=== PATIENT | female | born 1995 | race American Indian/Alaskan Native ===

== ENCOUNTER 2016-05-24 19:31 | Outpatient (CLI) | payer MEDICAID ==
[2016-05-24] MEDS ORDERED: LACTATED RINGERS 1,000 ML IV ONE (20:09)
[2016-05-24 20:11] VITALS: BP 121/69
[2016-05-24 20:33] LABS: Bilirubin,Urine NEG (Negative); Blood,Urine NEG (Negative); Ketones,Urine NEG (Negative); Leukocyte Esterase,Urine NEG (Negative); Mucus,Urine FEW /HPF; Nitrite,Urine NEG (Negative); Protein,Urine <15 mg/dL mg/dL (Negative); Urobilinogen,Urine < 2.0 mg/dL (<2.0)
== END 2016-05-24 21:30 | disposition home or self-care (01) ==
LOC: TRG 19:31
PROVIDERS: ATTEND Obstetrics & Gynecology
DX: O47.02 False labor before 37 completed weeks of gestation, second trimester (principal); Z3A.23 23 weeks gestation of pregnancy
CPT/HCPCS: 81001

== ENCOUNTER 2016-06-21 12:19 | Inpatient (IN) | payer MEDICAID ==
[2016-06-21] MEDS ORDERED: TYLENOL PO PRN (13:44)
[2016-06-21] MEDS ORDERED: COLACE PO PRN (13:44)
[2016-06-21] MEDS ORDERED: AMBIEN PO PRN (13:44)
[2016-06-21] MEDS ORDERED: APRESOLINE IV PRN ×2 (13:53→14:54)
--- NOTE | 2016-06-21 14:06 | History and Physical Report ---
History of Present Illness Date of examination: 06/21/16 Date of admission: 06/21/16 12:24 Chief complaint: Hypertensive in office History of present illness: 21yo @ 27.5 weeks. Seen in office today with increased BP 169/116 and 164/118, headache, dizziness, visual changes, + hands, feet and facial swelling. Denies RUQ pain. Pt has a history of PIH in previous in 2016, delivered at 37 weeks. 24 hour urine protein 244 on 03/08/2016. Past History Past Medical History: no pertinent history Past Surgical History: D&C Family/Genetic History: other (asthma) Social history: denies: smoking, alcohol abuse, prescription drug abuse, IV drug use - Obstetrical History Expected Date of Delivery: 09/15/16 Actual Gestation: 27 Week(s) 5 Day(s) : 4 Para: 1 Hx # Term Pregnancies: 1 (PIH) Number of Pregnancies: 1 (20 weeks, prolapsed membranes) Spontaneous Abortions: 0 Induced : 1 (Molar) Number of Living Children: 1 Medications and Allergies Allergies Allergy/AdvReac Type Severity Reaction Status Date / Time No Known Allergies Allergy Unverified 12/23/14 11:01 Home Medications Medication Instructions Recorded Confirmed Last Taken Type Vit W-Ca,Fe,FA(<1 mg) 1 each PO QDAY #30 tablet 01/16/16 Unknown Rx [ Vitamins] Active Meds: Active Medications Acetaminophen (Tylenol) 650 mg PO Q4H PRN PRN Reason: Pain MILD(1-3)/Fever >100.5/PERRIN Betamethasone Acet/Betameth SodPhos (Celestone Soluspan) 12 mg IM Q24H TORIE Stop: 06/22/16 14:01 Docusate Sodium (Colace) 100 mg PO Q12H PRN PRN Reason: Constipation Hydralazine HCl (Apresoline) 5 mg IV Q30MIN PRN PRN Reason: SBP>/= 160 OR DBP>/= 110 Multivitamins/Iron/Calcium ( Vitamin) 1 each PO QDAY TORIE Zolpidem Tartrate (Ambien) 10 mg PO ONCE PRN PRN Reason: Sleep Review of Systems All systems: negative Eyes: blurred vision Neurological: headaches - Vital Signs Vital signs: Vital Signs Pulse BP 68 182/113 06/21/16 13:31 06/21/16 13:31 Temp Pulse Resp BP Pulse Ox 71 179/106 06/21/16 13:34 06/21/16 13:34 - Physical Exam Cardiovascular: Regular rate Lungs: Positive: Normal air movement Vagina: Positive: normal moisture Extremities: Positive: normal Deep Tendon Reflex Grade: Normal +2 - Obstetrical FHR: category 1 FHR comments: FHT 145 Uterine Contraction Monitor Mode: External Uterine Contraction Pattern: Irregular Uterine Tone Measurement Phase: Resting Uterine Contraction Intensity: Mild Results All other labs normal. Assessment and Plan A: IUP 27.5 weeks with hypertension affecting Category 1 FHT Uncomfortable with headache P: Admit to [facility] PIH labs, 24 hour urine Hydralazine for SBP>/=160 OR DBP>/= 110 APA consult requested Care of patient turned over to Dr. Isaac.
[2016-06-21 14:16] LABS: Bacteria,Urine 1+ /HPF (Negative); Bilirubin,Urine NEG (Negative); Blood,Urine NEG (Negative); Ketones,Urine NEG (Negative); Leukocyte Esterase,Urine NEG (Negative); Mucus,Urine FEW /HPF; Nitrite,Urine NEG (Negative); Urobilinogen,Urine < 2.0 mg/dL (<2.0)
[2016-06-21 14:20] LABS: Basophils % (Auto) 0.5 % (0.0-1.8); Eosinophils % (Auto) 0.3 % (0.0-4.3); Hematocrit 36.1 % (30.3-42.9); Hemoglobin 12.1 gm/dl (10.1-14.3); Mean Corpuscular HGB Conc 34 % (30-34); Mean Corpuscular Hemoglobin 30 pg (28-32); Mean Corpuscular Volume 90 fl (79-97); Platelet Count 214 K/mm3 (140-440); Red Blood Count 3.99 M/mm3 (3.65-5.03); Red Cell Distribution Width 13.6 % (13.2-15.2); White Blood Count 9.4 K/mm3 (4.5-11.0)
[2016-06-21 14:21] LABS: Protein,Urine >500 mg/dL (Negative)
[2016-06-21 14:35] LABS: Alanine Aminotransferase 7 units/L (7-56); Lactate Dehydrogenase 249 units/L (91-180); Uric Acid 6.2 mg/dL (3.5-7.6)
[2016-06-21] MEDS ORDERED: MAGNESIUM SULFATE 4GM/100ML 4 GM/100 ML BAG IV ONE (14:46)
[2016-06-21] MEDS: CELESTONE SOLUSPAN IM SCH (14:50)
[2016-06-21] MEDS ORDERED: NORMODYNE IV ONE (14:58)
[2016-06-21] MEDS: MAGNESIUM SULFATE 40GM/1000ML 40 GM/1,000 ML BAG IV SCH (15:25)
[2016-06-21] MEDS: ZOFRAN IV PRN (15:45)
[2016-06-21] MEDS: LACTATED RINGERS 1,000 ML IV SCH (15:47)
--- NOTE | 2016-06-21 16:54 | Consultation ---
History of Present Illness Consult date: 06/21/16 Requesting physician: SHAKIR BEEBE History of present illness: History of present illness: 21yo at 27 5/7 weeks. Sent in from OB's office today with increased BP 169/116 and 164/118, headache , dizziness, visual changes, pos hands, feet and facial swelling. Reported BP started increasing about 2 to 3 weeks ago Denies H/O CHTN BP's in house up to 183/114 IV Hydralazine given and BP's now at 152/93 Currently on Mg Received First Dose of Steroids ========= Spot UA had > 500 Protein - 24 Hour Urine in progress ========= Denies RUQ pain. Pt has a history of PIH in previous in 2015, delivered at 37 weeks. 24 hour urine protein 244 on 03/08/2016. Exam" Abd NT No RUQ Pain Gravid Ext - 2-3 plus edema, DTR 1- 2/4 and Neg Nancy's but now on Mg US Pending Past History Denies STD's Past Medical History: no pertinent history Past Surgical History: D&C Family/Genetic History: other (asthma) Social history: denies: smoking, alcohol abuse, prescription drug abuse, IV drug use - Obstetrical History Expected Date of Delivery: 09/15/16 Actual Gestation: 27 Week(s) 5 Day(s) : 4 Para: 1 Hx # Term Pregnancies: 1 (PIH) 2014 Vag Del at 37 weeks - H/O PIH with this preg Number of Pregnancies: 1 (20 weeks, prolapsed membranes) Spontaneous Abortions: 0 Induced : 1 (Molar) Number of Living Children: 1 Past History Past Medical History: no pertinent history Past Surgical History: D&C Family/Genetic History: other (asthma) - Obstetrical History : 4 Medications and Allergies Allergies Allergy/AdvReac Type Severity Reaction Status Date / Time No Known Allergies Allergy Unverified 12/23/14 11:01 Home Medications Medication Instructions Recorded Confirmed Last Taken Type Vit W-Ca,Fe,FA(<1 mg) 1 each PO QDAY #30 tablet 01/16/16 Unknown Rx [ Vitamins] Active Meds: Active Medications Acetaminophen (Tylenol) 650 mg PO Q4H PRN PRN Reason: Pain MILD(1-3)/Fever >100.5/PERRIN Betamethasone Acet/Betameth SodPhos (Celestone Soluspan) 12 mg IM Q24H TORIE Stop: 06/22/16 14:01 Last Admin: 06/21/16 14:50 Dose: 12 mg Docusate Sodium (Colace) 100 mg PO Q12H PRN PRN Reason: Constipation Hydralazine HCl (Apresoline) 10 mg IV Q30MIN PRN PRN Reason: SBP>/= 160 OR DBP>/= 110 Last Admin: 06/21/16 13:50 Dose: 10 mg Magnesium Sulfate (Magnesium Sulfate 40gm/1000ml) 40 gm in 1,000 mls @ 50 mls/ hr IV DIRECT TORIE PRN Reason: 2 GM/HR Last Admin: 06/21/16 15:25 Dose: 2 gm/hr, 50 mls/hr Lactated Ringer's (Lactated Ringers) 1,000 mls @ 125 mls/hr IV DIRECT TORIE Last Admin: 06/21/16 15:47 Dose: 125 mls/hr Multivitamins/Iron/Calcium ( Vitamin) 1 each PO QDAY [facility] Ondansetron HCl (Zofran) 4 mg IV Q4H PRN PRN Reason: Nausea And Vomiting Last Admin: 06/21/16 15:45 Dose: 4 mg Zolpidem Tartrate (Ambien) 10 mg PO ONCE PRN PRN Reason: Sleep - Vital Signs Vital signs: Vital Signs Pulse BP 68 182/113 06/21/16 13:31 06/21/16 13:31 Temp Pulse Resp BP Pulse Ox 104 H 147/99 96 06/21/16 16:43 06/21/16 16:43 06/21/16 16:43 Results Result Diagrams: 06/21/16 13:35 06/21/16 13:35 Abnormal lab results 06/21/16 06/21/16 06/21/16 Range/Units 13:35 13:35 13:35 [place] % (Auto) 8.5 H (0.0-7.3) % Seg Neutrophils % 76.5 H (40.0-70.0) % Creatinine 0.6 L (0.7-1.2) mg/dL Lactate Dehydrogenase 249 H (91-180) units/L Urine WBC (Auto) 8.0 H (0.0-6.0) /HPF All other labs normal. Assessment and Plan Impression: 1. 27 2/7 weeks IUP 2. Preeclampsia with Severe Features 3. Prior H/O PIH 4. H/O Molar Preg in Past Recommendations: 1. Mg Per Protocal 2. Steroids Per Protocol 3. NICU Consult 4. All PIH Labs and 24 Hour Urine Prot 5. EFM 6. US for EFW, BPP, Cord Arterial Dopplers 7. IV Hydralazine for BP's Sys > 160 or Diastolic > 110 8. Seq Leg compressors 9. Repeat PIH labs tomorrow in AM 10. Delivery Recommended 24 Hours after steroid complete if remains stable due to Preeclasmpsia with Severe Features 11. Discussed in detail with patient and she understands serious nature of her condition and risk of Preeclampsia with Severe Features is now greater than risk of prematurity.
--- NOTE | 2016-06-22 07:39 | Ultrasound Report ---
ULTRASOUND OB VELOCIMETRY UMBILICAL ARTERY History: Hypertension during . Findings: Transabdominal ultrasound with spectral Doppler interrogation was performed on 3 segments of the umbilical cord. heart rate measures 159 beats per minute. Continuous spectral waveforms are demonstrated throughout. No evidence for loss of end-diastolic flow. The S/D ratio average measures 4.41. The resistive index average measures 0.77.
--- NOTE | 2016-06-22 07:39 | Ultrasound Report ---
ULTRASOUND BIOPHYSICAL PROFILE: History: Hypertension during , well being Technique: Transabdominal ultrasound with Doppler interrogation. 2 - breathing movements 2 - movements 2 - posture and tone 2 - Qualitative amniotic fluid volume 8 - TOTAL SCORE OF POSSIBLE 8 Heart Rate (bpm) 155
--- NOTE | 2016-06-22 07:56 | Ultrasound Report ---
ULTRASOUND OB FOLLOWUP History: Hypertension during . Technique: Transabdominal ultrasound with Doppler interrogation. Gestation: Single Position: Cephalic Amniotic Fluid: Normal MELINA = 9.7 cm Placenta: Anterior Placental Grade: 1 Heart Rate: 159 BPM Cervical length: 3.2 cm (Normal > 3 cm) BPD: 7.1 cm = 28 w 4 d HC: 26.1 cm = 28 w 2 d AC: 22.4 cm = 26 w 6 d FL: 5.2 cm = 27 w 5 d HC/AC Ratio: 1.16 Cephalic Index: 75.9 Estimated Weight: 1068 grams LMP: 12/10/15 Clinical age = 27 w 5 d EDC: 09/15/16 US Gest. Age = 27 w 6 d EDC: 09/14/16
--- NOTE | 2016-06-22 08:11 | Admit Criteria Form ---
Admission Criteria Documentation: HYPERTENSIVE DISORDERS OF Clinical Indications for Admission to Inpatient Care (Place 'X' for any and all applicable criteria): Admission is indicated for ANY ONE of the following (1)(2)(3)(4)(5): [ ]I. Eclampsia[A][B] [X]II. Preeclampsia with severe features (ie, severe preeclampsia) indicated by ANY ONE of the following[B][C]: [X]a) SBP greater than or equal to 160 mm Hg or DBP greater than or equal to 110 mm Hg on 2 occasions at least 4 hours apart while the patient is at bed rest (unless antihypertensive therapy is initiated before this time) [ ]b) Platelet count less than 100,000/mm3 (100 x109/L) [ ]c) Impaired liver function as indicated by ANY ONE of the following: [ ]i. Elevation of liver enzymes (eg, SGOT, SGPT) to twice normal concentration [ ]ii. Severe persistent right upper quadrant or epigastric pain unresponsive to medication and not accounted for by alternative diagnosis [ ]d) Progressive renal insufficiency indicated by ANY ONE of the following: [ ]i. Serum creatinine concentration greater than 1.1 mg/dL (97 micromoles/L) [ ]ii. Doubling (from baseline) of serum creatinine concentration in the absence of other renal disease [ ]e) Pulmonary edema [ ]f) Cerebral or visual symptoms (eg, headache, Altered mental status , changes in vision) [ ]III. Delivery planned due to nonsevere preeclampsia as indicated by ALL of the following: [ ]a) Nonsevere preeclampsia present as indicated by ALL of the following: [ ]i. Woman at 20 or more weeks' gestation [ ]ii. New-onset SBP greater than or equal to 140 mm Hg but less than 160 mm Hg or DBP greater than or equal to 90 mm Hg but less than 110 mm Hg on 2 occasions at least 4 hours apart [ ]iii. Proteinuria present as indicated by ANY ONE of the following: [ ]A. Urinary protein excretion greater than or equal to 300 mg per 24-hour collection (or this amount extrapolated from a shorter timed collection) [ ]B. Protein/creatinine ratio greater than or equal to 0.3 (measured in mg/dL) [ ]b) Delivery indicated due to ANY ONE of the following: [ ]i. Gestational age of 37 0/7 weeks or more [ ]ii. Gestational age of 34 0/7 weeks to 36 6/7 weeks and ANY ONE of the following: [ ]A. Progressive labor or rupture of membranes [ ]B. Abnormal biophysical profile [ ]C. Suspected abruptio placentae [ ]D. Ultrasound estimate of weight less than 5th percentile [ ]E. Other indication for delivery [ ]IV. Delivery planned due to gestational hypertension[D] because of ANY ONE of the following: [ ]a) Delivery indicated because gestational age of 37 0/7 weeks or more has been reached [ ]b) Gestational age of 34 0/7 weeks to 36 6/7 weeks for which delivery is indicated because of ANY ONE of the following: [ ]i. Progressive labor or rupture of membranes [ ]ii. Abnormal biophysical profile [ ]iii. Suspected abruptio placentae [ ]iv. Ultrasound estimate of weight less than 5th percentile [ ]v. Other indication for delivery [ ]V. Hypertension of any category[E] during with acute end organ damage as indicated by ANY ONE of the following: [ ]a) Hypertensive encephalopathy (eg, Altered mental status that is severe or persistent )(11) [ ]b) Cerebral infarction [ ]c) Intracranial hemorrhage [ ]d) Myocardial ischemia or infarction [ ]e) Pulmonary edema [ ]f) Aortic dissection [ ]g) Seizure [ ]h) Papilledema [ ]i) Microangiopathic hemolytic anemia [ ]j) Visual loss [ ]k) Acute renal failure [ ]) Hypertension during with evidence of compromise as indicated by ANY ONE of the following: [ ]a) Abnormal heart tones [ ]b) Abnormal stress test [ ]c) Abnormal biophysical profile [X]VII) patient requires inpatient control of blood pressure indicated by (see Hypertensive Disorders of : Observation Care [facility] guideline as appropriate) ALL of the following: [X ]a) SBP is greater than or equal to 160 mm Hg or DBP is greater than or equal to 105 mm Hg [X ]b) Blood pressure cannot be reduced below these levels with outpatient or observation care treatment (eg, oral medications not effective) Extended stay beyond goal length of stay may be needed for : [ ]a) Eclampsia [ ]b) Ongoing compromise [ ]c) Complications of hypertensive disorders of [ ]d) Active comorbidities (eg, heart failure, poorly controlled diabetes, renal insufficiency) [ ]e) Persistent hypertension [ ]f) Delivery planned The original [facility] content created by [facility] has been revised. The portions of the content which have been revised are identified through the use of italic text or in bold, and [facility] (formerly [facility])[3] has neither reviewed nor approved the modified material. All other unmodified content is copyright [facility]. Please see references footnoted in the original [facility] [facility] edition 2016. Admission Criteria Met: Yes
[2016-06-22 08:29] LABS: Hematocrit 37.6 % (30.3-42.9); Hemoglobin 12.6 gm/dl (10.1-14.3); Mean Corpuscular HGB Conc 34 % (30-34); Mean Corpuscular Hemoglobin 30 pg (28-32); Mean Corpuscular Volume 90 fl (79-97); Platelet Count 231 K/mm3 (140-440); Red Blood Count 4.17 M/mm3 (3.65-5.03); Red Cell Distribution Width 14.2 % (13.2-15.2)
[2016-06-22 08:34] LABS: White Blood Count 22.6 K/mm3 (4.5-11.0)
[2016-06-22 09:01] LABS: Magnesium 6.5 mg/dL (1.7-2.3)
--- NOTE | 2016-06-22 09:45 | Progress Note ---
Assessment and Plan - Patient Problems (1) Pre-eclampsia Onset Date: 06/22/16 Current Visit: Yes Status: Acute Qualifiers: Trimester: third trimester Qualified Code(s): O14.93 - Unspecified pre- eclampsia, third trimester (2) with 27 completed weeks gestation Onset Date: 06/22/16 Current Visit: Yes Status: Acute Plan to address problem: A: IUP @ 27 6/7 weeks Preeclampsia - stable on magnesium sulfate Abnormal cord doppler studies P: Appreciate [facility] consultation Continue present management To receive 2nd dose of Betamethasone today with possible delivery today 24 hr urine to be completed today Subjective - Subjective Date of service: 06/22/16 Principal diagnosis: IUP @ 27 6/7 weeks; Preeclampsia Interval history: Pt is sleeping, but had no complaints last night. Presently on magnesium sulfate 2gm/hr, and received 1st dose of Betamethasone. Patient reports: no new complaints Objective - Vital Signs Vital Signs: Vital Signs - 12hr 06/21/16 06/21/16 06/21/16 21:54 22:09 22:24 Temperature Pulse Rate 96 H 100 H 101 H Pulse Rate [ From Monitor] Respiratory Rate Blood Pressure 146/94 141/88 147/88 Blood Pressure [Left Arm] O2 Sat by Pulse Oximetry 06/21/16 06/21/16 06/21/16 22:39 22:54 23:09 Temperature Pulse Rate 96 H 94 H 100 H Pulse Rate [ From Monitor] Respiratory Rate Blood Pressure 145/89 143/89 144/89 Blood Pressure [Left Arm] O2 Sat by Pulse Oximetry 06/21/16 06/21/16 06/21/16 23:24 23:39 23:54 Temperature Pulse Rate 102 H 105 H 96 H Pulse Rate [ From Monitor] Respiratory Rate Blood Pressure 148/95 157/100 132/77 Blood Pressure [Left Arm] O2 Sat by Pulse Oximetry 06/21/16 06/22/16 06/22/16 23:55 00:09 00:24 Temperature 98.1 F Pulse Rate 96 H 99 H Pulse Rate [ 96 H From Monitor] Respiratory 20 Rate Blood Pressure 136/81 131/78 Blood Pressure 132/77 [Left Arm] O2 Sat by Pulse Oximetry 06/22/16 06/22/16 06/22/16 00:39 00:54 01:09 Temperature Pulse Rate 101 H 103 H 110 H Pulse Rate [ From Monitor] Respiratory Rate Blood Pressure 134/79 126/75 151/93 Blood Pressure [Left Arm] O2 Sat by Pulse Oximetry 06/22/16 06/22/16 06/22/16 01:25 01:39 01:54 Temperature Pulse Rate 112 H 105 H 95 H Pulse Rate [ From Monitor] Respiratory Rate Blood Pressure 146/92 152/94 141/90 Blood Pressure [Left Arm] O2 Sat by Pulse Oximetry 06/22/16 06/22/16 06/22/16 02:09 02:39 02:54 Temperature Pulse Rate 102 H 100 H 105 H Pulse Rate [ From Monitor] Respiratory Rate Blood Pressure 133/84 141/88 143/93 Blood Pressure [Left Arm] O2 Sat by Pulse Oximetry 06/22/16 06/22/16 06/22/16 03:09 03:24 03:39 Temperature Pulse Rate 97 H 103 H 108 H Pulse Rate [ From Monitor] Respiratory Rate Blood Pressure 148/94 134/71 149/89 Blood Pressure [Left Arm] O2 Sat by Pulse Oximetry 06/22/16 06/22/16 06/22/16 03:54 04:09 04:10 Temperature Pulse Rate 104 H 107 H Pulse Rate [ 107 H From Monitor] Respiratory 20 Rate Blood Pressure 149/88 149/88 Blood Pressure 149/88 [Left Arm] O2 Sat by Pulse Oximetry 06/22/16 06/22/16 06/22/16 04:24 04:39 04:55 Temperature Pulse Rate 111 H 104 H 109 H Pulse Rate [ From Monitor] Respiratory Rate Blood Pressure 152/92 125/73 140/94 Blood Pressure [Left Arm] O2 Sat by Pulse Oximetry 06/22/16 06/22/16 06/22/16 05:09 05:24 05:39 Temperature Pulse Rate 113 H 112 H 110 H Pulse Rate [ From Monitor] Respiratory Rate Blood Pressure 146/93 132/76 142/84 Blood Pressure [Left Arm] O2 Sat by Pulse Oximetry 06/22/16 06/22/16 06/22/16 05:55 06:09 06:12 Temperature Pulse Rate 109 H 106 H 109 H Pulse Rate [ From Monitor] Respiratory Rate Blood Pressure 139/96 135/82 Blood Pressure [Left Arm] O2 Sat by Pulse 96 Oximetry 06/22/16 06/22/16 06/22/16 06:17 06:22 06:24 Temperature Pulse Rate 118 H 98 H 93 H Pulse Rate [ From Monitor] Respiratory Rate Blood Pressure 129/79 Blood Pressure [Left Arm] O2 Sat by Pulse 94 93 Oximetry 06/22/16 06/22/16 06/22/16 06:27 06:32 06:37 Temperature Pulse Rate 96 H 94 H 98 H Pulse Rate [ From Monitor] Respiratory Rate Blood Pressure Blood Pressure [Left Arm] O2 Sat by Pulse 94 94 94 Oximetry 06/22/16 06/22/16 06/22/16 06:39 06:42 06:47 Temperature Pulse Rate 93 H 101 H 98 H Pulse Rate [ From Monitor] Respiratory Rate Blood Pressure 132/77 Blood Pressure [Left Arm] O2 Sat by Pulse 93 94 Oximetry 06/22/16 06/22/16 06/22/16 06:52 06:54 06:57 Temperature Pulse Rate 99 H 98 H 99 H Pulse Rate [ From Monitor] Respiratory Rate Blood Pressure 140/78 Blood Pressure [Left Arm] O2 Sat by Pulse 93 94 Oximetry 06/22/16 06/22/16 06/22/16 07:02 07:07 07:09 Temperature Pulse Rate 102 H 100 H 100 H Pulse Rate [ From Monitor] Respiratory Rate Blood Pressure 135/75 Blood Pressure [Left Arm] O2 Sat by Pulse 94 94 Oximetry 06/22/16 06/22/16 06/22/16 07:12 07:17 07:22 Temperature Pulse Rate 100 H 100 H 110 H Pulse Rate [ From Monitor] Respiratory Rate Blood Pressure Blood Pressure [Left Arm] O2 Sat by Pulse 94 94 93 Oximetry 06/22/16 06/22/16 06/22/16 07:24 07:27 07:32 Temperature Pulse Rate 115 H 117 H 102 H Pulse Rate [ From Monitor] Respiratory Rate Blood Pressure 138/77 Blood Pressure [Left Arm] O2 Sat by Pulse 93 93 Oximetry 06/22/16 06/22/16 06/22/16 07:37 07:39 07:42 Temperature Pulse Rate 105 H 101 H 103 H Pulse Rate [ From Monitor] Respiratory Rate Blood Pressure 133/72 Blood Pressure [Left Arm] O2 Sat by Pulse 93 93 Oximetry 06/22/16 06/22/16 06/22/16 07:47 07:52 07:54 Temperature Pulse Rate 103 H 100 H 100 H Pulse Rate [ From Monitor] Respiratory Rate Blood Pressure 132/75 Blood Pressure [Left Arm] O2 Sat by Pulse 92 93 Oximetry 06/22/16 06/22/16 06/22/16 07:57 08:02 08:10 Temperature Pulse Rate 105 H 129 H 110 H Pulse Rate [ From Monitor] Respiratory Rate Blood Pressure 136/92 Blood Pressure [Left Arm] O2 Sat by Pulse 93 95 Oximetry 06/22/16 06/22/16 06/22/16 08:24 08:39 08:54 Temperature Pulse Rate 108 H 109 H 107 H Pulse Rate [ From Monitor] Respiratory Rate Blood Pressure 137/78 131/76 129/75 Blood Pressure [Left Arm] O2 Sat by Pulse Oximetry 06/22/16 06/22/16 06/22/16 09:16 09:24 09:39 Temperature Pulse Rate 115 H 114 H 108 H Pulse Rate [ From Monitor] Respiratory Rate Blood Pressure 136/90 137/93 140/85 Blood Pressure [Left Arm] O2 Sat by Pulse Oximetry - Exam Abdomen: Present: normal appearance Uterus: Present: normal FHR: category 1 Uterine Contraction Monitor Mode: External - Labs Labs: Abnormal Labs 06/21/16 06/21/16 06/21/16 13:35 13:35 13:35 WBC [place] % (Auto) 8.5 H Seg Neutrophils % 76.5 H Creatinine 0.6 L Magnesium Lactate Dehydrogenase 249 H Urine WBC (Auto) 8.0 H 06/22/16 06/22/16 08:04 08:04 WBC 22.6 H [place] % (Auto) Seg Neutrophils % Creatinine Magnesium 6.50 H Lactate Dehydrogenase Urine WBC (Auto) Laboratory Results - last 24 hr 06/21/16 06/21/16 06/21/16 13:35 13:35 13:35 WBC 9.4 RBC 3.99 Hgb 12.1 Hct 36.1 MCV 90 MCH 30 MCHC 34 RDW 13.6 Plt Count 214 Lymph % (Auto) 14.2 [place] % (Auto) 8.5 H Eos % (Auto) 0.3 Baso % (Auto) 0.5 Lymph # 1.3 [place] # 0.8 Eos # 0.0 Baso # 0.0 Seg Neutrophils % 76.5 H Seg Neutrophils # 7.2 Creatinine Estimated GFR Uric Acid Magnesium AST ALT Lactate Dehydrogenase Urine Color Yellow Urine Turbidity Clear Urine pH 6.0 Ur Specific Vance 1.030 Urine Protein >500 Urine Glucose (UA) Neg Urine Ketones Neg Urine Blood Neg Urine Nitrite Neg Urine Bilirubin Neg Urine Urobilinogen < 2.0 Ur Leukocyte Esterase Neg Urine WBC (Auto) 8.0 H Urine RBC (Auto) 2.0 U Epithel Cells (Auto) 6.0 Urine Bacteria (Auto) 1+ Hyaline Casts 1 Urine Mucus Few Blood Type B POSITIVE OSCAR Antibody Screen Negative 06/21/16 06/22/16 06/22/16 13:35 08:04 08:04 WBC 22.6 H RBC 4.17 Hgb 12.6 Hct 37.6 MCV 90 MCH 30 MCHC 34 RDW 14.2 Plt Count 231 Lymph % (Auto) [place] % (Auto) Eos % (Auto) Baso % (Auto) Lymph # [place] # Eos # Baso # Seg Neutrophils % Seg Neutrophils # Creatinine 0.6 L Estimated GFR > 60 Uric Acid 6.2 Magnesium 6.50 H AST 16 20 ALT 7 9 Lactate Dehydrogenase 249 H Urine Color Urine Turbidity Urine pH Ur Specific Vance Urine Protein Urine Glucose (UA) Urine Ketones Urine Blood Urine Nitrite Urine Bilirubin Urine Urobilinogen Ur Leukocyte Esterase Urine WBC (Auto) Urine RBC (Auto) U Epithel Cells (Auto) Urine Bacteria (Auto) Hyaline Casts Urine Mucus Blood Type OSCAR Antibody Screen - Results US- obstetric: report reviewed (Mcneil, cephalic presentation, MELINA 9.7, EFW 1068gms; Cord Doppler - Persistent abnormal)
[2016-06-22] MEDS: PRENATAL VITAMIN PO SCH (12:28)
[2016-06-22] MEDS: MAGNESIUM SULFATE 40GM/1000ML 40 GM/1,000 ML BAG IV SCH (12:28)
[2016-06-22] MEDS: CELESTONE SOLUSPAN IM SCH (14:11)
--- NOTE | 2016-06-22 18:02 | Progress Note ---
Assessment and Plan - Patient Problems (1) Pre-eclampsia Onset Date: 06/22/16 Current Visit: Yes Status: Acute Qualifiers: Trimester: third trimester Qualified Code(s): O14.93 - Unspecified pre- eclampsia, third trimester (2) with 27 completed weeks gestation Onset Date: 06/22/16 Current Visit: Yes Status: Acute Plan to address problem: A: IUP @ 27 6/7 weeks Preeclampsia - stable on magnesium sulfate Abnormal cord doppler studies P: Discussed with [facility] (Dr Rojas) to get her delivered Will begin pitocin for induction of labor Subjective - Subjective Date of service: 06/22/16 Principal diagnosis: IUP @ 27 6/7 weeks; Preeclampsia Interval history: Pt is feeling well, denies headaches , but has some blurred vision. Presently on magnesium sulfate 2gm/hr, and received 2nd dose of Betamethasone. Patient reports: movement normal, no new complaints, no vaginal bleeding, no contractions Objective - Vital Signs Vital Signs: Vital Signs - 12hr 06/22/16 06/22/16 06/22/16 06:09 06:12 06:17 Pulse Rate 106 H 109 H 118 H Blood Pressure 135/82 O2 Sat by Pulse 96 94 Oximetry 06/22/16 06/22/16 06/22/16 06:22 06:24 06:27 Pulse Rate 98 H 93 H 96 H Blood Pressure 129/79 O2 Sat by Pulse 93 94 Oximetry 06/22/16 06/22/16 06/22/16 06:32 06:37 06:39 Pulse Rate 94 H 98 H 93 H Blood Pressure 132/77 O2 Sat by Pulse 94 94 Oximetry 06/22/16 06/22/16 06/22/16 06:42 06:47 06:52 Pulse Rate 101 H 98 H 99 H Blood Pressure O2 Sat by Pulse 93 94 93 Oximetry 06/22/16 06/22/16 06/22/16 06:54 06:57 07:02 Pulse Rate 98 H 99 H 102 H Blood Pressure 140/78 O2 Sat by Pulse 94 94 Oximetry 06/22/16 06/22/16 06/22/16 07:07 07:09 07:12 Pulse Rate 100 H 100 H 100 H Blood Pressure 135/75 O2 Sat by Pulse 94 94 Oximetry 06/22/16 06/22/16 06/22/16 07:17 07:22 07:24 Pulse Rate 100 H 110 H 115 H Blood Pressure 138/77 O2 Sat by Pulse 94 93 Oximetry 06/22/16 06/22/16 06/22/16 07:27 07:32 07:37 Pulse Rate 117 H 102 H 105 H Blood Pressure O2 Sat by Pulse 93 93 93 Oximetry 06/22/16 06/22/16 06/22/16 07:39 07:42 07:47 Pulse Rate 101 H 103 H 103 H Blood Pressure 133/72 O2 Sat by Pulse 93 92 Oximetry 06/22/16 06/22/16 06/22/16 07:52 07:54 07:57 Pulse Rate 100 H 100 H 105 H Blood Pressure 132/75 O2 Sat by Pulse 93 93 Oximetry 06/22/16 06/22/16 06/22/16 08:02 08:10 08:24 Pulse Rate 129 H 110 H 108 H Blood Pressure 136/92 137/78 O2 Sat by Pulse 95 Oximetry 06/22/16 06/22/16 06/22/16 08:39 08:54 09:16 Pulse Rate 109 H 107 H 115 H Blood Pressure 131/76 129/75 136/90 O2 Sat by Pulse Oximetry 06/22/16 06/22/16 06/22/16 09:24 09:39 11:24 Pulse Rate 114 H 108 H 120 H Blood Pressure 137/93 140/85 141/91 O2 Sat by Pulse Oximetry 06/22/16 06/22/16 06/22/16 11:39 11:54 12:09 Pulse Rate 101 H 100 H 103 H Blood Pressure 134/81 127/73 124/71 O2 Sat by Pulse Oximetry 06/22/16 12:24 Pulse Rate 113 H Blood Pressure 135/82 O2 Sat by Pulse Oximetry - Exam Cardiovascular: Regular rate Lungs: Clear to auscultation Abdomen: Present: normal appearance, soft Uterus: Present: normal FHR: category 1 Uterine Contraction Monitor Mode: External Cervical Dilatation: 1.5 Cervical Effacement Percentage: 60 station: -2 Uterine Contraction Pattern: Absent - Labs Labs: Abnormal Labs 06/21/16 06/21/16 06/21/16 13:35 13:35 13:35 WBC Stewart % (Auto) 8.5 H Seg Neutrophils % 76.5 H Creatinine 0.6 L Magnesium Lactate Dehydrogenase 249 H Urine WBC (Auto) 8.0 H Urine Creatinine Ur Total Protein 24 Hr Urine Total Protein 06/21/16 06/22/16 06/22/16 15:29 08:04 08:04 WBC 22.6 H Stewart % (Auto) Seg Neutrophils % Creatinine Magnesium 6.50 H Lactate Dehydrogenase Urine WBC (Auto) Urine Creatinine 198.6 H Ur Total Protein 24 Hr Urine Total Protein 06/22/16 13:50 WBC Stewart % (Auto) Seg Neutrophils % Creatinine Magnesium Lactate Dehydrogenase Urine WBC (Auto) Urine Creatinine 198.6 H Ur Total Protein 24 Hr 1720.00 H Urine Total Protein 215 H Laboratory Results - last 24 hr 06/21/16 06/22/16 06/22/16 15:29 08:04 08:04 WBC 22.6 H RBC 4.17 Hgb 12.6 Hct 37.6 MCV 90 MCH 30 MCHC 34 RDW 14.2 Plt Count 231 Magnesium 6.50 H AST 20 ALT 9 Urine Total Volume 800 Urine Creatinine 198.6 H Ur Creatinine 24 Hour Height (in) 68.0 Weight (lb) 237.0 Creatinine Clearance 145 Ur Total Protein 24 Hr Urine Total Protein 06/22/16 13:50 WBC RBC Hgb Hct MCV MCH MCHC RDW Plt Count Magnesium AST ALT Urine Total Volume 800 Urine Creatinine 198.6 H Ur Creatinine 24 Hour 1.6 Height (in) Weight (lb) Creatinine Clearance Ur Total Protein 24 Hr 1720.00 H Urine Total Protein 215 H
[2016-06-22] MEDS ORDERED: STADOL IV PRN (18:19)
[2016-06-22] MEDS ORDERED: POLYCILLIN/NS 2 GM/100 ML 2 GM/100 ML BAG IV ONE (19:00)
[2016-06-22] MEDS: LACTATED RINGERS 1,000 ML IV SCH (19:13)
[2016-06-22] MEDS: PITOCin/NS 30 UNIT/500ML 30 UNITS/500 ML BAG IV SCH (22:23)
[2016-06-23] MEDS ORDERED: POLYCILLIN/NS 1 GM/50 ML 1 GM/50 ML BAG IV SCH
[2016-06-23] MEDS: PITOCin/NS 30 UNIT/500ML 30 UNITS/500 ML BAG IV SCH ×2 (00:04→03:07)
[2016-06-23] MEDS: LACTATED RINGERS 1,000 ML IV SCH (03:07)
[2016-06-23] MEDS ORDERED: PEPCID IV ONE ×2 (05:05→05:32)
[2016-06-23] MEDS ORDERED: PITOCin/NS 20 UNIT/1000ML DRIP 20,000 MILLIUNITS/1,000 ML BAG IV ONE (05:05)
[2016-06-23] MEDS ORDERED: REGLAN ONE (05:05)
[2016-06-23] MEDS ORDERED: BICITRA ONE (05:05)
[2016-06-23] MEDS ORDERED: ANCEF/STERILE WATER 2 GM/20 ML 2 GM/20 ML SYRINGE IV ONE (05:05)
--- NOTE | 2016-06-23 05:29 | Anesthesia Consultation ---
Anesthesia Consult and Med Hx Date of service: 06/23/16 - Airway Anesthetic Teeth Evaluation: Good ROM Head & Neck: Adequate Mental/Hyoid Distance: Adequate Mallampati Class: Class II Intubation Access Assessment: Probably Good - Pulmonary Exam CTA: Yes - Cardiac Exam Cardiac Exam: RRR - Pre-Operative Health Status ASA Pre-Surgery Classification: ASA2 Proposed Anesthetic Plan: Spinal - Pulmonary Hx Asthma: No COPD: No Hx Pneumonia: No - Cardiovascular System Hx Hypertension: No - Central Nervous System Hx Seizures: No Hx Psychiatric Problems: No - Endocrine Hx Renal Disease: No Hx End Stage Renal Disease: No Hx Hypothyroidism: No Hx Hyperthyroidism: No - Hematic Hx Anemia: No Hx Sickle Cell Disease: No - Other Systems Hx Alcohol Use: No
[2016-06-23] MEDS ORDERED: MORPHINE ONE (05:30)
--- NOTE | 2016-06-23 05:30 | Anesthesia Day of Surgery ---
Anesthesia Day of Surgery - Day of Surgery Patient Examined: Yes Patient H&P Reviewed: Yes Patient is NPO: Yes
[2016-06-23] MEDS ORDERED: REGLAN IV ONE (05:32)
[2016-06-23] MEDS ORDERED: BICITRA PO ONE (05:32)
--- NOTE | 2016-06-23 05:32 | Event Note ---
Date: 06/23/16 Received a call from the nurse that pt is having repetitive late decelerations, presently on pitocin 10mu/min and dilated 3cms. Will proceed with a Primary C Section.
[2016-06-23] MEDS ORDERED: ZOFRAN ONE (05:56)
[2016-06-23] MEDS ORDERED: PITOCin/NS 20 UNIT/1000ML DRIP 20 UNITS/1,000 ML BAG IV SCH ×2 (06:00→08:00)
[2016-06-23] MEDS ORDERED: LACTATED RINGERS 1,000 ML IV SCH (06:00)
[2016-06-23] MEDS ORDERED: NACL 0.9% IR ONE (06:00)
[2016-06-23] MEDS ORDERED: ANCEF/STERILE WATER 2 GM/20 ML 2 GM/20 ML SYRINGE IV NR (06:00)
[2016-06-23] MEDS ORDERED: WATER FOR IRRIG STERILE IR ONE (06:00)
[2016-06-23] MEDS ORDERED: ePHEDrine SULFATE ONE (06:03)
[2016-06-23] MEDS ORDERED: VERSED ONE (06:07)
--- NOTE | 2016-06-23 06:54 | Operative Report ---
Operative Report Operative Report: Date of procedure: 06/23/2016 Pre-operative diagnosis: 1. Intrauterine at 28-0/7 weeks 2. Severe preeclampsia 3. Nonreassuring surveillance Post-operative diagnosis: Same Procedure name(s): Primary low vertical Surgeon: Laz Isaac MD Kiln Puller: None Anesthesia: Spinal anesthesia by Dr. Braeden Morris EBL: 400 MLS Findings: A 980 g female infant Apgars 3 at 1 minute 6 at 5 minutes 8 at 10 minutes. Clear amniotic fluid. Normal uterus. Normal tubes and ovaries bilaterally. Procedure: After the patient was prepped and draped in usual sterile fashion, and after satisfactory level of epidural anesthesia was obtained, the skin knife was used to make a transverse skin incision. The incision was excised down to layer of the fascia, which was nicked in the midline and extended laterally using the Bovie cautery. The rectus muscles were dissected off the rectus fascia both superiorly and inferiorly. The rectus bellies in the midline, and the peritoneum was entered under direct visualization. The peritoneal incision was extended superiorly and inferiorly. A bladder flap was created and the bladder blade was then placed. The uterus was scored in a vertical linear fashion, entered in the midline where the fetus was delivered in the sac. Amniotomy was then performed revealing clear amniotic fluid. The was delivered onto the surgical field, and the oropharynx and nasopharynx were bulb suctioned and delayed cord clamping was done. The cord was doubly clamped and cut and the was handed to the waiting respiratory team. The placenta was manually removed from the uterus and sent to pathology, and the uterus removed from its normal anatomical position. After gentle uterine lavage, the incision was inspected and found to be without extensions. It was then closed in 2 layers using 0 Vicryl suture in a running interlocking fashion, the second layer imbricating the first. After good hemostasis was achieved, copious amounts or irrigation was performed, and the gutters were suctioned free of blood and blood clots. Tisseel sealant was sprayed across the uterine incision. The uterus was then returned to its normal anatomical position, and after excellent hemostasis assured, the peritoneum was reapproximated using 3-0 Vicryl suture in a running interlocking fashion, and then the rectus muscles were reapproximated using 3-0 Vicryl suture in a figure- of-eight configuration. The fascia was then reapproximated using 0 Vicryl suture in running interlocking fashion. The subcutaneous layer was made hemostatic using Bovie cautery, the Tisseel sealant was sprayed across the fascial incision and the skin edges reapproximated using 4-0 Vicryl suture in a subcuticular fashion. Patient tolerated the procedure well was transported to recovery in stable condition.
[2016-06-23] MEDS: MAGNESIUM SULFATE 40GM/1000ML 40 GM/1,000 ML BAG IV SCH (07:17)
[2016-06-23] MEDS ORDERED: TORADOL IV PRN (08:00)
[2016-06-23] MEDS ORDERED: SODIUM CHLORIDE FLUSH SYRINGE 10 ML IV PRN (08:00)
[2016-06-23] MEDS ORDERED: PHENERGAN PR PRN (08:00)
[2016-06-23] MEDS ORDERED: TUCKS PAD TP PRN (08:00)
[2016-06-23] MEDS ORDERED: MYLICON PO PRN (08:00)
[2016-06-23] MEDS ORDERED: D5LR 1,000 ML IV SCH (08:00)
[2016-06-23] MEDS ORDERED: SENOKOT PO PRN (08:00)
[2016-06-23] MEDS ORDERED: LANSINOH TP PRN (08:00)
[2016-06-23] MEDS ORDERED: NARCAN 0.4 MG/1 ML IV PRN (08:00)
[2016-06-23] MEDS ORDERED: ANCEF/NS 1 GM/50 ML 1 GM/50 ML BAG IV SCH (08:00)
[2016-06-23] MEDS ORDERED: ANUCORT-HC PR PRN (10:00)
[2016-06-23] MEDS: ANCEF/NS 1 GM/50 ML 1 GM/50 ML BAG IV SCH ×2 (14:15→22:30)
[2016-06-23] MEDS: ZOFRAN IV PRN (18:19)
[2016-06-23 20:23] LABS: Hematocrit 32.9 % (30.3-42.9)
[2016-06-23] MEDS ORDERED: MILK OF MAGNESIA PO PRN (22:00)
--- NOTE | 2016-06-23 22:02 | Event Note ---
Date: 06/23/16 Magnesium level still elevated at 5.8. BP labile. Will D/C mag at this time and start Labetalol 200mg BID
[2016-06-23] MEDS: NORMODYNE PO SCH (22:19)
[2016-06-24] MEDS ORDERED: BOOSTRIX IM ONE (06:00)
--- NOTE | 2016-06-24 08:17 | Progress Note ---
Subjective Date of service: 06/24/16 Principal diagnosis: IUP @ 27 6/7 weeks; Preeclampsia Interval history: 1st POD after Patient is in the bed, relatively comfortable. Pain is mostly under control. Ambulated well. No residual neurological deficit. Slight pruritus not requiring treatment. No anesthesia complications Objective - Constitutional Vitals: Vital Signs - 12hr 06/23/16 06/23/16 06/24/16 22:19 22:50 00:30 Temperature 97.8 F Pulse Rate 18 L Pulse Rate [ 65 73 From Monitor] Pulse Rate [ Left Radial] Respiratory 20 20 Rate Blood Pressure 140/90 Blood Pressure 150/94 121/79 [Left Arm] 06/24/16 06/24/16 04:35 07:33 Temperature 98.2 F 98.4 F Pulse Rate Pulse Rate [ 72 From Monitor] Pulse Rate [ 70 Left Radial] Respiratory 20 16 Rate Blood Pressure Blood Pressure 152/86 133/77 [Left Arm] - Labs CBC & Chem 7: 06/23/16 20:10 06/21/16 13:35 Labs: Abnormal lab results 06/23/16 06/23/16 06/24/16 Range/Units 13:14 20:10 00:43 Magnesium 5.90 H 5.80 H 5.10 H (1.7-2.3) mg/dL
[2016-06-24] MEDS: FEOSOL PO SCH (09:17)
[2016-06-24] MEDS: PRENATAL VITAMIN PO SCH (09:18)
[2016-06-24] MEDS: NORMODYNE PO SCH ×2 (09:18→22:23)
[2016-06-24] MEDS: MOTRIN PO PRN ×2 (09:19→15:40)
[2016-06-24] MEDS ORDERED: M-M-R II VACCINE SUB-Q ONE (11:00)
--- NOTE | 2016-06-24 13:17 | Progress Note ---
Assessment and Plan A: POD #1 Preeclampsia P: Follow Routine PostOp Orders Encourage increased Ambulation Continue MD Management for Preeclampsia Subjective - Subjective Date of service: 06/24/16 Principal diagnosis: IUP @ 27 6/7 weeks; Preeclampsia Patient reports: appetite normal, voiding normally, pain well controlled, flatus , ambulating normally, other (Denies all s/s of PIH) [place]: in NICU Objective - Vital Signs Latest vital signs: Vital Signs Temp Pulse Pulse Pulse Resp BP BP 06/24/16 09:19 20 06/24/16 07:33 98.4 F 70 16 133/77 06/24/16 04:35 98.2 F 72 20 152/86 06/24/16 00:30 97.8 F 73 20 121/79 06/23/16 22:50 65 20 150/94 06/23/16 22:19 18 L 140/90 06/23/16 20:10 97.9 F 64 20 151/95 06/23/16 19:00 140/100 06/23/16 18:08 84 20 158/104 06/23/16 16:00 98.0 F 70 16 128/74 06/23/16 14:05 76 20 136/83 Intake and Output 06/23/16 06/24/16 06/24/16 22:59 06:59 14:59 Intake Total 1130 120 Output Total 1200 700 Balance -70 -580 Intake: IV 650 D5lr 1,000 ml @ 125 mls/ 200 hr IV DIRECT TORIE Rx#: [id number] MAGNESIUM SULFATE 40GM/ 50 1000ML 40 gm In 1,000 ml @ 1 GM/HR 25 mls/hr IV DIRECT TORIE Rx#:[id number] PITOCin/NS 20 UNIT/1000ML 400 DRIP 20 units In 1,000 ml @ 250 mls/hr IV DIRECT TORIE Rx#:[id number] Oral 480 Intake, Free Water 120 Output: Urine 1200 700 Indwelling Catheter 1200 700 Other: Total, Intake Amount 120 Total, Output Amount 300 700 - Exam Breasts: Present: normal Cardiovascular: Present: Regular rate Lungs: Present: Clear to auscultation, Normal air movement Abdomen: Present: normal appearance, soft, normal bowel sounds Uterus: Present: normal, firm, fundal height below umbilicus Extremities: Present: edema Incision: Present: normal, dry, dressed - Labs Labs: Abnormal lab results 06/23/16 06/23/16 06/24/16 Range/Units 13:14 20:10 00:43 Magnesium 5.90 H 5.80 H 5.10 H (1.7-2.3) mg/dL
[2016-06-24] MEDS: NORCO 5/325 PO PRN (15:41)
[2016-06-25] MEDS: NORCO 5/325 PO PRN (01:14)
--- NOTE | 2016-06-25 07:12 | Progress Note ---
Assessment and Plan - Patient Problems (1) Pre-eclampsia Onset Date: 06/22/16 Current Visit: Yes Status: Resolved Qualifiers: Trimester: third trimester Qualified Code(s): O14.93 - Unspecified pre- eclampsia, third trimester (2) with 27 completed weeks gestation Onset Date: 06/22/16 Current Visit: Yes Status: Resolved (3) Status post primary low transverse section Onset Date: 06/25/16 Current Visit: Yes Status: Resolved Plan to address problem: A: S/P C Section - POD #2 Doing well Preeclampsia - stable on Labetolol 200mg BID P: Continue RPOC Anticipate discharge in 24hrs if remains stable Subjective - Subjective Date of service: 06/25/16 Principal diagnosis: s/p C Section - POD #2 Interval history: Pt is feeling well without complaints, denies headaches or blurred vision. Presently on Labetolol 200mg BID and BP's ranging from 130-164/80-94; currently 143/80 Patient reports: appetite normal, voiding normally, pain well controlled, flatus , ambulating normally : doing well, in NICU Objective - Vital Signs Latest vital signs: Vital Signs Temp Pulse Pulse Pulse Resp BP BP 06/25/16 00:45 98.7 F 82 20 143/80 06/24/16 22:23 18 L 130/94 06/24/16 22:00 130/90 06/24/16 16:00 98.6 F 67 18 164/88 06/24/16 15:41 20 06/24/16 12:00 97.8 F 68 16 128/68 06/24/16 09:19 20 06/24/16 07:33 98.4 F 70 16 133/77 Intake and Output 06/24/16 06/25/16 06/25/16 22:59 06:59 14:59 Intake Total 240 360 Balance 240 360 Intake: Oral 240 360 Other: Total, Intake Amount 240 120 # Voids Void 1 1 - Exam Breasts: Present: deferred Cardiovascular: Present: Regular rate Lungs: Present: Clear to auscultation Abdomen: Present: normal appearance, soft Uterus: Present: normal, firm, fundal height below umbilicus Extremities: Present: edema Incision: Present: normal, dry, intact
[2016-06-25] MEDS: PERCOCET 5/325 PO PRN ×2 (08:06→18:41)
[2016-06-25] MEDS ORDERED: LASIX PO ONE (10:00)
[2016-06-25] MEDS: PRENATAL VITAMIN PO SCH (11:12)
[2016-06-25] MEDS: FEOSOL PO SCH (11:12)
[2016-06-25] MEDS: NORMODYNE PO SCH ×2 (11:12→22:24)
[2016-06-25] MEDS: MOTRIN PO PRN (18:43)
[2016-06-26] MEDS: PERCOCET 5/325 PO PRN ×3 (00:22→17:39)
--- NOTE | 2016-06-26 08:53 | Progress Note ---
Assessment and Plan - Patient Problems (1) Pre-eclampsia Onset Date: 06/22/16 Current Visit: Yes Status: Resolved Qualifiers: Trimester: third trimester Qualified Code(s): O14.93 - Unspecified pre- eclampsia, third trimester (2) with 27 completed weeks gestation Onset Date: 06/22/16 Current Visit: Yes Status: Resolved (3) Status post primary low transverse section Onset Date: 06/25/16 Current Visit: Yes Status: Resolved Plan to address problem: A: S/P C Section - POD #2 Doing well Preeclampsia - elevated BP on Labetolol 200mg BID P: Continue RPOC Will add Procardia XL 30mg PO QD - first dose now Anticipate discharge in 24 hrs Subjective - Subjective Date of service: 06/26/16 Principal diagnosis: s/p C Section - POD #3 Interval history: Pt is feeling well without complaints, denies headaches or blurred vision. Presently on Labetolol 200mg BID and BP's ranging from 130-164/80-94; currently 143/80. Patient reports: appetite normal, voiding normally, pain well controlled, flatus , ambulating normally [place]: doing well, in NICU Objective - Vital Signs Latest vital signs: Vital Signs Temp Pulse Pulse Resp BP BP 06/26/16 00:06 98.4 F 70 20 154/97 06/25/16 22:24 68 151/92 06/25/16 18:43 18 06/25/16 18:41 18 06/25/16 15:30 98.3 F 74 20 147/74 06/25/16 11:12 76 158/90 Intake and Output 06/25/16 06/26/16 06/26/16 22:59 06:59 14:59 Intake Total 240 Balance 240 Intake: Oral 240 Other: Total, Intake Amount 240 Voiding Method Toilet # Voids Void 1 - Exam Breasts: Present: deferred Cardiovascular: Present: Regular rate Lungs: Present: Clear to auscultation Abdomen: Present: normal appearance, soft Uterus: Present: normal, firm, fundal height below umbilicus Extremities: Present: normal Incision: Present: normal, dry, intact
[2016-06-26] MEDS: NORMODYNE PO SCH (09:49)
[2016-06-26] MEDS: PRENATAL VITAMIN PO SCH (09:49)
[2016-06-26] MEDS: FEOSOL PO SCH (09:49)
[2016-06-26] MEDS ORDERED: PROCARDIA XL PO SCH (10:00)
--- NOTE | 2016-06-26 20:56 | Consultation ---
History of Present Illness - Reason for Consult Consult date: 06/26/16 Management of HTN Requesting physician: SHAKIR BEEBE - History of Present Illness 21 y/o female with recent Csection 3 dys ago has uncontrolled HTN.BP 168/98 recently now trending down to 148/84.Asymptomatic. Past History Past Medical History: No medical history Past Surgical History: Social history: denies: smoking, alcohol abuse, prescription drug abuse, IV drug use Family history: hypertension Medications and Allergies Allergies Allergy/AdvReac Type Severity Reaction Status Date / Time No Known Allergies Allergy Unverified 12/23/14 11:01 Home Medications Medication Instructions Recorded Confirmed Last Taken Type Vit W-Ca,Fe,FA(<1 mg) 1 each PO QDAY #30 tablet 01/16/16 06/21/1606/21 10:00 Rx [ Vitamins] 1 Ferrous Sulfate [Feosol 325 MG tab] 325 mg PO BID #60 tablet 06/23/16 Unknown Rx HYDROcodone/APAP 5-325 [[place] 1 each PO Q6HR PRN #30 tablet 06/23/16 Unknown Rx 5/325] Ibuprofen [Motrin] 800 mg PO Q8HR PRN #30 tablet 06/23/16 Unknown Rx Vit W-Ca,Fe,FA(<1 mg) 1 each PO DAILY #30 tablet 06/23/16 Unknown Rx [ Vitamins] Active Meds: Active Medications Acetaminophen (Tylenol) 650 mg PO Q4H PRN PRN Reason: Pain MILD(1-3)/Fever >100.5/PERRIN Acetaminophen/Hydrocodone Bitart ([place] 5/325) 1 each PO Q4H PRN PRN Reason: Pain, Moderate (4-6) Last Admin: 06/25/16 01:14 Dose: 1 each Docusate Sodium (Colace) 100 mg PO Q12H PRN PRN Reason: Constipation Ferrous Sulfate (Feosol) 325 mg PO QDAY TORIE Last Admin: 06/26/16 09:49 Dose: 325 mg Hydralazine HCl (Apresoline) 10 mg IV Q30MIN PRN PRN Reason: SBP>/= 160 OR DBP>/= 110 Last Admin: 06/21/16 13:50 Dose: 10 mg Hydrocortisone Acetate (Anucort-Hc) 25 mg AR BID PRN PRN Reason: Hemorrhoids Dextrose/Lactated Ringer's (D5lr) 1,000 mls @ 125 mls/hr IV DIRECT TORIE Last Admin: 06/23/16 14:17 Dose: 125 mls/hr Oxytocin/Sodium Chloride (Pitocin/Ns 20 Unit/1000ml Drip) 20 units in 1,000 mls @ 250 mls/hr IV DIRECT TORIE Ibuprofen (Motrin) 800 mg PO Q6H PRN PRN Reason: Pain, Mild (1-3) Last Admin: 06/25/16 18:43 Dose: 800 mg Ketorolac Tromethamine (Toradol) 30 mg IV Q6H PRN PRN Reason: Pain, Moderate (4-6) Stop: 06/28/16 07:59 Last Admin: 06/23/16 17:57 Dose: 30 mg Labetalol HCl (Normodyne) 200 mg PO BID [facility] Last Admin: 06/26/16 09:49 Dose: 200 mg Magnesium Hydroxide (Milk Of Magnesia) 30 ml PO QHS PRN PRN Reason: Constip Unrelieved By Senna Multi-Ingredient Ointment (Lansinoh) 1 applic TP PRN PRN PRN Reason: dryness/cracking Last Admin: 06/26/16 14:08 Dose: 1 applic Multivitamins/Iron/Calcium ( Vitamin) 1 each PO QDAY [facility] Last Admin: 06/26/16 09:49 Dose: 1 each Naloxone HCl (Narcan 0.4 Mg/1 Ml) 0.1 mg IV Q2MIN PRN PRN Reason: Res Rate </= 8 or 02 SAT < 92% Nifedipine (Procardia Xl) 30 mg PO QDAY [facility] Last Admin: 06/26/16 09:49 Dose: 30 mg Ondansetron HCl (Zofran) 4 mg IV Q4H PRN PRN Reason: Nausea And Vomiting Last Admin: 06/23/16 18:19 Dose: 4 mg Oxycodone/Acetaminophen (Percocet 5/325) 2 tab PO Q4H PRN PRN Reason: Pain, Moderate (4-6) Last Admin: 06/26/16 17:39 Dose: 2 tab Promethazine HCl (Phenergan) 25 mg AR Q6H PRN PRN Reason: N/V IF NPO AND NO IV ACCESS Senna (Senokot) 17.2 mg PO QHS PRN PRN Reason: Constipation Simethicone (Mylicon) 80 mg PO Q6H PRN PRN Reason: Gas pain Sodium Chloride (Sodium Chloride Flush Syringe 10 Ml) 10 ml IV PRN PRN PRN Reason: flush Witch [place]uli/Glycerin (Tucks Pad) 1 each TP PRN PRN PRN Reason: Hemorrhoids/cleansing/soothing Review of Systems All systems: negative Exam - Constitutional Vitals: Temp Pulse Resp BP Pulse Ox 97.9 F 71 18 164/95 98 06/26/16 16:07 06/26/16 16:07 06/26/16 17:39 06/26/16 16:07 06/23/16 07:51 General appearance: Present: no acute distress, well-nourished - EENT Eyes: Present: PERRL ENT: hearing intact, clear oral mucosa - Neck Neck: Present: supple, normal ROM - Respiratory Respiratory effort: normal Respiratory: bilateral: CTA - Cardiovascular Heart Sounds: Present: S1 & S2. Absent: rub, click - Extremities Extremities: pulses symmetrical, No edema Peripheral Pulses: within normal limits - Abdominal General gastrointestinal: Present: soft, non-tender, non-distended, normal bowel sounds Female genitourinary: Present: normal - Integumentary Integumentary: Present: clear, warm, dry - Musculoskeletal Musculoskeletal: gait normal, strength equal bilaterally - Psychiatric Psychiatric: appropriate mood/affect, intact judgment & insight - Neurologic Neurologic: CNII-XII intact, moves all extremities Results - Labs CBC & Chem 7: 06/23/16 20:10 06/26/16 21:48 Assessment and Plan - Patient Problems (1) Hypertension affecting in third trimester Current Visit: Yes Status: Acute Plan to address problem: Added Norvasc and coreg.Will discontinue coreg and discharge on Norvasc 10 mg po qd and follow up with PCP for management of BP.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
[2016-06-26] MEDS: NORCO 5/325 PO PRN (21:54)
[2016-06-26] MEDS ORDERED: NORVASC PO SCH (22:00)
[2016-06-26 22:41] LABS: Anion Gap 14 mmol/L; BUN/Creatinine Ratio 14.28; Blood Urea Nitrogen 10 mg/dL (7-17); Calcium 7.9 mg/dL (8.4-10.2); Carbon Dioxide 27 mmol/L (22-30); Chloride 102.8 mmol/L (98-107); Glucose 104 mg/dL (65-100); Potassium 4.5 mmol/L (3.6-5.0); Sodium 139 mmol/L (137-145)
[2016-06-26] MEDS: COREG PO SCH (23:23)
[2016-06-27] MEDS: PERCOCET 5/325 PO PRN ×2 (01:21→12:00)
[2016-06-27] MEDS: COREG PO SCH (09:20)
--- NOTE | 2016-06-27 10:42 | Progress Note ---
Assessment and Plan - Patient Problems (1) Pre-eclampsia Onset Date: 06/22/16 Current Visit: Yes Status: Resolved Qualifiers: Trimester: third trimester Qualified Code(s): O14.93 - Unspecified pre- eclampsia, third trimester (2) with 27 completed weeks gestation Onset Date: 06/22/16 Current Visit: Yes Status: Resolved (3) Status post primary low transverse section Onset Date: 06/25/16 Current Visit: Yes Status: Resolved Plan to address problem: A: S/P C Section - POD #4 Doing well Preeclampsia - improved BP on Labetolol 200mg BID, Procardia XL 30mg QD plus Norvasc 10mg QD P: Cleared for discharge per Hospitalist Follow up in office in 3 days for BP check Subjective - Subjective Date of service: 06/27/16 Principal diagnosis: s/p C Section - POD #4 Interval history: Pt is feeling well without complaints, denies headaches or blurred vision. Presently on Labetolol 200mg BID, Procardial XL 30mgQD and Norvasc 10mg QD and BP's ranging from 133-152/70-90; currently 148/90. Patient reports: appetite normal, voiding normally, pain well controlled, flatus , ambulating normally [place]: doing well, in NICU Objective - Vital Signs Latest vital signs: Vital Signs Temp Pulse Pulse Pulse Resp BP BP 06/27/16 08:25 98.2 F 78 20 148/90 06/27/16 04:40 98.8 F 68 20 142/90 06/27/16 01:10 98.5 F 65 18 133/79 06/26/16 23:23 70 152/70 06/26/16 23:22 70 152/70 06/26/16 20:15 99 F 68 18 06/26/16 17:39 18 06/26/16 16:07 97.9 F 71 20 06/26/16 14:10 68 06/26/16 13:30 74 BP 06/27/16 08:25 06/27/16 04:40 06/27/16 01:10 06/26/16 23:23 06/26/16 23:22 06/26/16 20:15 146/84 06/26/16 17:39 06/26/16 16:07 164/95 06/26/16 14:10 142/88 06/26/16 13:30 161/95 Intake and Output 06/26/16 06/27/16 06/27/16 22:59 06:59 14:59 Intake Total 1150 440 360 Balance 1150 440 360 Intake: Oral 790 360 Intake, Free Water 360 440 Other: Total, Intake Amount 550 360 Voiding Method Toilet # Voids Void 1 1 1 - Exam Breasts: Present: deferred Abdomen: Present: normal appearance, soft Uterus: Present: normal, firm, fundal height below umbilicus Extremities: Present: normal Incision: Present: normal, dry, intact - Labs Labs: Abnormal lab results 06/26/16 Range/Units 21:48 Glucose 104 H (65-100) mg/dL Calcium 7.9 L (8.4-10.2) mg/dL Laboratory Results - last 24 hr 06/26/16 21:48 Sodium 139 Potassium 4.5 Chloride 102.8 Carbon Dioxide 27 Anion Gap 14 BUN 10 Creatinine 0.7 Estimated GFR > 60 BUN/Creatinine Ratio 14.28 Glucose 104 H Calcium 7.9 L
--- NOTE | 2016-06-27 11:00 | Discharge Summary ---
Providers - Providers Date of Admission: 06/22/16 12:43 Date of discharge: 06/27/16 Attending physician: SHAKIR FINE MD 06/21/16 13:44 Consult to Physician [CONS] Routine Consulting Provider: ULSIES DAVIDSON Reason For Exam: 27 weeks gestation, hypertension in Place consult to:: [facility] Notified:: TAMMY IN OFFICE Phone number called:: [phone] Was contact made?: Yes If yes, spoke with:: TAMMY Time called:: 14:00 06/21/16 20:50 Consult to Physician [CONS] Urgent Consulting Provider: TIMOTHY CHURCH Reason For Exam: IUP @ 27 5/7 weeks; Preeclampsia Place consult to:: NICU Notified:: NICU Phone number called:: [phone] Was contact made?: Yes If yes, spoke with:: Debora Time called:: 20:51 06/26/16 16:31 Consult to Physician [CONS] Urgent Consulting Provider: MARC HOGAN Reason For Exam: Elevated BP's Place consult to:: Hospitalist Notified:: Dr Hogan Phone number called:: [phone] Was contact made?: Yes If yes, spoke with:: Dr Hogan Time called:: 16:34 Primary care physician: SHAKIR FINE MD Hospitalization Reason for admission: IUP - , other (Preeclampsia) Delivery: Procedure: section, primary low transverse Episiotomy: none Laceration: none Incision: normal Other procedures: none complications: other (preeclampsia - controlled with BP meds) Discharge diagnosis: other (Preeclampsia), delivery baby: female Hospital course: Pt is a 21yo BF EDC 09/15/16; EGA 27 5/7 weeks presented from the office for evaluation of elevated BP's. She was found to have severe preeclampsia, and after receiving her 2nd dose of steroids she was delivered by C Section due to intolerance to labor. She tolerated the procedure well, and received magnesium sulfate x 24hrs along with Labetolol 200mg BID and Procardia XL 30mg QD for BP control. However her BP wasn't well controlled thus the Hospitalist was consulted and added Coreg 6.25mg BID and Norvasc 10mg QD to the regimen. The Coreg and Norvasc was eventually discontinued whilst the Procardia XL was increased to 60mg QD. She is currently doing well without symptoms, and thus will be discharged to home today on POD #4 in stable condition. Condition at discharge: Good Disposition: DISCHARGED TO HOME OR SELFCARE - Discharge Diagnoses (1) Pre-eclampsia Status: Resolved Qualifiers: Trimester: third trimester Qualified Code(s): O14.93 - Unspecified pre- eclampsia, third trimester (2) with 27 completed weeks gestation Status: Resolved (3) Status post primary low transverse section Status: Resolved Plan - Discharge Medications Prescriptions: Ferrous Sulfate [Feosol 325 MG tab] 325 mg PO BID #60 tablet HYDROcodone/APAP 5-325 [[place] 5/325] 1 each PO Q6HR PRN #30 tablet PRN Reason: Pain Ibuprofen [Motrin] 800 mg PO Q8HR PRN #30 tablet PRN Reason: Moder Pain Unrelieved By [place] Labetalol [Normodyne TAB] 200 mg PO BID #60 tablet NIFEdipine XL [Procardia Xl] 60 mg PO QDAY #30 tablet Vit W-Ca,Fe,FA(<1 mg) [ Vitamins] 1 each PO DAILY #30 tablet - Provider Discharge Summary Activity: routine, no sex for 6 weeks, no heavy lifting 4 weeks, no strenuous exercise Diet: routine Instructions: routine Additional instructions: [] Smoking cessation referral if applicable(refer to patient education folder for contact #) [] Refer to [facility] Center Booklet Call your doctor immediately for: * Fever > 100.5 * Heavy vaginal bleeding ( >1 pad per hour) * Severe persistent headache * Shortness of breath * Reddened, hot, painful area to leg or breast * Drainage or odor from incision * Severe headaches, blurred vision or epigatric pains. * Keep incision clean and dry at all times and follow doctor's instructions regarding bathing/showering Follow up in office for BP check in 3 days. - Follow up plan Follow up: SHAKIR PAPPAS MD [Primary Care Provider] - 3 Days
--- NOTE | 2016-06-27 11:46 | Event Note ---
Date: 06/27/16 Went to see patient, but she was not in room. Her BP is stable. She can go home on Labetalol and Nifedipine XL 60mg po daily. I discussed with Dr. Marina Isaac ,Gyne Attending.
[2016-06-27] MEDS ORDERED: PROCARDIA XL PO SCH (12:00)
[2016-06-27] MEDS ORDERED: NORMODYNE PO SCH (12:00)
[2016-06-27] MEDS: MOTRIN PO PRN (12:00)
[2016-06-27] MEDS: PRENATAL VITAMIN PO SCH ×2 (12:03→12:06)
[2016-06-27] MEDS: FEOSOL PO SCH ×2 (12:04→12:06)
[2016-06-27 16:10] VITALS: BP 138/80
== END 2016-06-27 17:36 | disposition home or self-care (01) | DRG 765 ==
LOC: TRG 12:19 → LD 12:24 → OBSVTOIN 06-22 12:43 → APU 06-23 05:11 → OB 06-23 08:14
PROVIDERS: ADMIT Obstetrics & Gynecology; ATTEND Obstetrics & Gynecology
PROC: 10D00Z1 Extraction of Products of Conception, Low, Open Approach (ICD-10-PCS; principal; 2016-06-23)
PROC: 3E0234Z Introduction of Serum, Toxoid and Vaccine into Muscle, Percutaneous Approach (ICD-10-PCS; 2016-06-24)
DX: O14.13 Severe pre-eclampsia, third trimester (principal); O60.12X0 Preterm labor second trimester with preterm delivery second trimester, not applicable or unspecified; O75.89 Other specified complications of labor and delivery; O34.211 Maternal care for low transverse scar from previous cesarean delivery; Z23 Encounter for immunization; Z3A.27 27 weeks gestation of pregnancy; Z37.0 Single live birth; Z82.5 Family history of asthma and other chronic lower respiratory diseases
CPT/HCPCS: 36415; 76816; 76819; 76820; 80048; 81001; 82565; 82570; 82575; 83615; 83735; 84156; 84450; 84460; 84550; 85014; 85018; 85025; 85027; 86850; 86900; 86901; 88307; 99211; A6250; C9250; G0378; G0463; J0290; J0360; J0690; J0702; J1885; J2250; J2270; J2405; J2590; J2765; J3475; J7120; J7121

== ENCOUNTER 2017-10-19 19:55 | Emergency (ER) | payer SELFPAY ==
[2017-10-19 20:05] VITALS: BP 125/77
[2017-10-19] MEDS ORDERED: NACL 0.9% 1000 ML 1,000 ML IV ONE (20:05)
[2017-10-19 20:23] LABS: Basophils % (Auto) 0.4 % (0.0-1.8); Eosinophils # (Auto) 0.1 K/mm3 (0.0-0.4); Eosinophils % (Auto) 0.7 % (0.0-4.3); Hematocrit 36.6 % (30.3-42.9); Hemoglobin 12.3 gm/dl (10.1-14.3); Lymphocytes % (Auto) 21.4 % (13.4-35.0); Mean Corpuscular HGB Conc 34 % (30-34); Mean Corpuscular Hemoglobin 30 pg (28-32); Mean Corpuscular Volume 90 fl (79-97); Monocytes # (Auto) 0.6 K/mm3 (0.0-0.8); Monocytes % (Auto) 6.9 % (0.0-7.3); Platelet Count 249 K/mm3 (140-440); Red Blood Count 4.07 M/mm3 (3.65-5.03); Red Cell Distribution Width 14.2 % (13.2-15.2)
[2017-10-19 20:40] LABS: Alanine Aminotransferase 7 units/L (7-56); Albumin 3.7 g/dL (3.9-5); BUN/Creatinine Ratio 10; Blood Urea Nitrogen 5 mg/dL (7-17); Calcium 9.1 mg/dL (8.4-10.2); Hemolysis Index 3
[2017-10-19 22:00] LABS: Bilirubin,Urine NEG (Negative); Color,Urine Yellow (Yellow); Mucus,Urine 2+ /HPF
[2017-10-19 22:05] LABS: Blood,Urine Trace (Negative)
== END 2017-10-19 22:00 | disposition left against medical advice (07) ==
LOC: ED 19:55
DX: R10.9 Unspecified abdominal pain (principal); Z53.21 Procedure and treatment not carried out due to patient leaving prior to being seen by health care provider
CPT/HCPCS: 36415; 80053; 81001; 84702; 85025

== ENCOUNTER 2018-02-09 13:17 | Inpatient (IN) | payer MEDICAID ==
[2018-02-09] MEDS ORDERED: BICITRA PO ONE (14:36)
[2018-02-09] MEDS ORDERED: BRETHINE SUB-Q ONE (14:36)
[2018-02-09] MEDS ORDERED: REGLAN IV ONE (14:36)
[2018-02-09] MEDS ORDERED: PEPCID IV ONE (14:36)
--- NOTE | 2018-02-09 14:42 | History and Physical Report ---
History of Present Illness Date of examination: 02/09/18 Date of admission: 02/09/18 Chief complaint: SIUP at 36 weeks and 2 days in active labor. History of present illness: Patient is a 22 year old , LMP 06/28/17, EDC 03/07/18 at 36 weeks and 2 days gestation who was brought to triage by EMS for contractions which started last night. She said that the pain got worse today. She denies any fluid leakage or bleeding. She reports good movement. She has a previous classical C/section at 28 weeks and is for repeat C/section and tubal ligation. tr acing is CAT1. Past History Past Medical History: other (Vit D def) Past Surgical History: section (classical) Social history: no significant social history - Obstetrical History Expected Date of Delivery: 03/07/18 Actual Gestation: 36 Week(s) 2 Day(s) : 6 Para: 2 Spontaneous Abortions: 3 Number of Living Children: 2 #1 Gender: Female year: 2,[birth year] Birthweight: 3.345 kg Method of Delivery: Vaginal Gestational age at delivery: 37 Complications: none #2 Infant Gender: Female year: 2,017 Birthweight: 1.134 kg Method of Delivery: (classical) Gestational age at delivery: 28 Complications: other (severe pre-eclampsia) Medications and Allergies Allergies Allergy/AdvReac Type Severity Reaction Status Date / Time No Known Allergies Allergy Verified 12/29/17 12:15 Home Medications Medication Instructions Recorded Confirmed Last Taken Type Vit Calc,Iron,Folic 1 each PO QDAY #30 tablet 01/16/16 06/21/16 06/21/16 10:00 Rx [ Vitamins] 1 Ferrous Sulfate [Feosol 325 MG tab] 325 mg PO BID #60 tablet 06/23/16 Unknown Rx HYDROcodone/APAP 5-325 [[place] 1 each PO Q6HR PRN #30 tablet 06/23/16 Unknown Rx 5/325] Ibuprofen [Motrin] 800 mg PO Q8HR PRN #30 tablet 06/23/16 Unknown Rx Vit Calc,Iron,Folic 1 each PO DAILY #30 tablet 06/23/16 Unknown Rx [ Vitamins] Labetalol [Normodyne TAB] 200 mg PO BID #60 tablet 06/27/16 Unknown Rx NIFEdipine XL [Procardia Xl] 60 mg PO QDAY #30 tablet 06/27/16 Unknown Rx - Vital Signs Vital signs: Vital Signs Pulse BP 74 152/90 02/09/18 14:05 02/09/18 14:05 Temp Pulse Resp BP Pulse Ox 74 152/90 02/09/18 14:05 02/09/18 14:05 - Physical Exam Cardiovascular: Normal S1, Normal S2 Lungs: Positive: Clear to auscultation Vulva: both: normal Deep Tendon Reflex Grade: Normal +2 - Obstetrical FHR: category 1 Uterine Contraction Monitor Mode: External Cervical Dilatation: 4 Cervical Effacement Percentage: 80 station: -2 Uterine Contraction Pattern: Regular (Q 5mins) Uterine Contraction Intensity: Moderate Results Result Diagrams: 02/09/18 15:06 All other labs normal. Assessment and Plan - Patient Problems (1) 36 weeks gestation of Current Visit: Yes Status: Acute (2) Active labor Current Visit: Yes Status: Acute Plan to address problem: Admit for STAT repeat C/section and BTL. (3) Previous section Current Visit: Yes Status: Acute Plan to address problem: Previous classical C/section. Admit for STAT Repeat C/section and tubal ligatio n. The risks, benefits, and alternatives of the procedure were discussed in detail with the patient which included but not limited to the risk of infection, hemorrhage requiring blood transfusion, injury to the bowel bladder and blood vessels, failure of the tubal ligation to prevent which can result and unwanted pregnancies in the future. The patient expressed understanding, her questions were answered, and she gave informed consent. Keep patient nothing by mouth. Anesthesia has been notified. Terbutaline s.c. Routine admitting/preop labs. monitoring. IV fluids bolus. (4) Unwanted fertility Current Visit: Yes Status: Acute Plan to address problem: For BTL.
[2018-02-09] MEDS ORDERED: LACTATED RINGERS 2,000 ML ONE (14:46)
[2018-02-09 14:59] LABS: Bilirubin,Urine NEG (Negative); Blood,Urine NEG (Negative); Color,Urine Yellow (Yellow); Mucus,Urine FEW /HPF; RBC,Urine < 1.0 /HPF (0.0-6.0)
[2018-02-09] MEDS ORDERED: LACTATED RINGERS 1,000 ML IV SCH (15:00)
[2018-02-09] MEDS ORDERED: NACL 0.9% IR ONE (15:00)
[2018-02-09] MEDS ORDERED: WATER FOR IRRIG STERILE IR ONE (15:00)
[2018-02-09] MEDS ORDERED: ANCEF/STERILE WATER 2 GM/20 ML 2 GM/20 ML SYRINGE IV NR (15:00)
[2018-02-09] MEDS ORDERED: ZOFRAN ONE (15:01)
[2018-02-09] MEDS ORDERED: SUBLIMAZE ONE (15:02)
[2018-02-09] MEDS ORDERED: ASTRAMORPH PF 10MG/10ML ONE (15:02)
[2018-02-09] MEDS ORDERED: PITOCin/NS 20 UNIT/1000ML DRIP 20,000 MILLIUNITS/1,000 ML BAG IV ONE (15:17)
[2018-02-09 15:18] LABS: Basophils % (Auto) 0.1 % (0.0-1.8); Eosinophils % (Auto) 0.1 % (0.0-4.3); Hemoglobin 10.6 gm/dl (10.1-14.3); Lymphocytes # (Auto) 1.7 K/mm3 (1.2-5.4); Lymphocytes % (Auto) 15.6 % (13.4-35.0); Mean Corpuscular HGB Conc 34 % (30-34); Mean Corpuscular Volume 89 fl (79-97); Monocytes # (Auto) 0.8 K/mm3 (0.0-0.8); Monocytes % (Auto) 7.6 % (0.0-7.3); Platelet Count 214 K/mm3 (140-440); Red Blood Count 3.49 M/mm3 (3.65-5.03); Red Cell Distribution Width 13.9 % (13.2-15.2)
[2018-02-09] MEDS ORDERED: METHERGINE IM ONE (16:19)
[2018-02-09] MEDS ORDERED: NACL 0.9% 1000 ML 1,000 ML ONE (17:07)
[2018-02-09] MEDS ORDERED: MYLICON PO PRN (17:20)
[2018-02-09] MEDS ORDERED: TUCKS PAD TP PRN (17:20)
[2018-02-09] MEDS ORDERED: ANUCORT-HC PR PRN (17:20)
[2018-02-09] MEDS ORDERED: TYLENOL PO PRN (17:20)
[2018-02-09] MEDS ORDERED: ZOFRAN IV PRN (17:20)
[2018-02-09] MEDS ORDERED: NARCAN 0.4 MG/1 ML IV PRN (17:20)
[2018-02-09] MEDS ORDERED: MILK OF MAGNESIA PO PRN (17:20)
[2018-02-09] MEDS ORDERED: LANSINOH TP PRN (17:20)
[2018-02-09] MEDS ORDERED: MORPHINE IV PRN ×2 (17:20)
[2018-02-09] MEDS ORDERED: SENOKOT PO PRN (17:20)
[2018-02-09] MEDS ORDERED: TORADOL IV PRN ×2 (17:20)
--- NOTE | 2018-02-09 17:29 | Operative Report ---
Operative Report Operative Report: Preoperative diagnosis: 1. SIUP at 36 weeks and 2 days gestation in active labor. 2. Previous classical section. 3. Unwanted fertility. Postoperative diagnosis: Same as preoperative diagnoses. Procedure: 1. Repeat low transverse section. 2. Bilateral tubal ligation via [place] method. Anesthesia: Spinal-epidural. Surgeon: Dr. Rosas Roll Over Loader: none EBL: 800 cc IVF: 1800 cc of RL Urine: 50 cc clear Complications: none Intraoperative findings: 1. A female found in an DU position, delivered at 4:12 PM, Apgars as per NICU, weight 5 lbs 13 oz. 2. Normal fallopian tubes and ovaries bilaterally. Procedure details: The risks, benefits, and alternatives of the procedure were discussed in detail with the patient which included but not limited to the risk of infection, hemorrhage requiring blood transfusion, injury to the bowel or bladder and blood vessels, failure of the tubal ligation to prevent which can result in unwanted pregnancies in the future. The patient expressed understanding, her questions were answered, and she gave informed consent. The patient was taken to the operating room with an IV fluid infusion Ringer's lactate and a Hasnen catheter in place. In the operating room, she was placed in a sitting position and given a combined spinal-epidural anesthesia. She was then placed in a dorsal supine position with a leftward tilt. Venodyne boots were placed. The abdomen was washed and she was prepared and draped in usual sterile fashion. After confirming adequate anesthesia, a Pfannenstiel skin incision was made in the lower abdomen at the level of the previous scar using the scalpel. This incision was carried down to the underlying fascia using the Bovie. The fascia was incised bilaterally in a curvilinear fashion using the Bovie. 2 straight Kocker clamps were used to grasp the upper edge of the fascia from which the underlying rectus abdominis muscle was dissected off using the Bovie. A similar procedure was done with the lower wedge of the fascia to dissect the underlying rectus abdominis muscle. The muscle was bluntly from the midline by pulling. The parietal peritoneum was grasped with 2 hemostat clamps and entered sharply using Metzenbaum scissors. A quick survey of the anatomy revealed a gravid uterus, normal fallopian tubes and ovaries bilaterally. A bladder flap was created. Ashok'O retractor was placed in the incision for proper visualization. A low transverse incision was made in the lower uterine segment using the scalpel and extended bilaterally in a curvilinear fashion using bandage scissors. The amniotic sac was ruptured and there was copious amount of clear amniotic fluids. The infant was found in an DU position. The head was delivered atraumatically followed by the delivery of the shoulders and rest of the body at 4:12 PM. Bulb suction of the mouth and nose was performed. The cord was clamped 2 and cut and the infant was handed off to the waiting director ship. The infant was a female, Apgars as per peds, weight was 5 lbs. 13 oz. Cord blood was collected. The placenta was delivered manually and it was complete with a three-vessel cord. The uterine cavity was cleaned of clots and debris using dry lap sponges. The uterine incision was repaired in a running locked fashion using 0 Vicryl sutures. A second layer of imbrication was placed. The gutters were cleaned of clots and debris using dry lap sponges. The left fallopian tube was grasped with Cindy clamp and, using 0 Vicryl sutures, a tie was made forming a knuckle and a 2 cm segment of that tube was resected and sent to pathology. The right fallopian tube was grasped with [place] clamp and tied in a similar fashion and a 2 cm segment was resected and sent to pathology. Good hemostasis was confirmed. The instruments were removed from the abdominal cavity. The fascia was closed in a running fashion using 0 Vicryl sutures. The skin was closed with lara. Sterile dressing was placed. The counts of laps, needles, sponges, and instruments were correct 2. The patient tolerated the procedure well. She was taken to the recovery room in a stable condition.
[2018-02-09] MEDS ORDERED: SODIUM CHLORIDE FLUSH SYRINGE 10 ML IV NR (18:00)
[2018-02-09] MEDS ORDERED: PITOCin/NS 20 UNIT/1000ML DRIP 20 UNITS/1,000 ML BAG IV SCH (18:00)
--- NOTE | 2018-02-09 18:36 | Anesthesia Consultation ---
Anesthesia Consult and Med Hx - Airway Anesthetic Teeth Evaluation: Good ROM Head & Neck: Adequate Mental/Hyoid Distance: Adequate Mallampati Class: Class I Intubation Access Assessment: Good - Pulmonary Exam CTA: Yes - Cardiac Exam Cardiac Exam: RRR - Pre-Operative Health Status ASA Pre-Surgery Classification: ASA2 Proposed Anesthetic Plan: Epidural, Spinal - Pulmonary Hx Smoking: No Hx Asthma: No Hx Respiratory Symptoms: No SOB: No COPD: No Home Oxygen Therapy: No Hx Pneumonia: No Hx Sleep Apnea: No - Cardiovascular System Hx Hypertension: No Hx Coronary Artery Disease: No Hx Heart Attack/AMI: No Hx Angina: No Hx Percutaneous Transluminal Coronary Angioplasty (PTCA): No Hx Cardia Arrhythmia: No Hx Pacemaker: No Hx Internal Defibrillator: No Hx Valvular Heart Disease: No Hx Heart Murmur: No - Central Nervous System Hx Seizures: No Hx Psychiatric Problems: No - Endocrine Hx Renal Disease: No Hx End Stage Renal Disease: No Hx Hypothyroidism: No Hx Hyperthyroidism: No - Hematic Hx Anemia: No Hx Sickle Cell Disease: No - Other Systems Hx Alcohol Use: No
--- NOTE | 2018-02-09 18:37 | Post Anesthesia Evaluation ---
- Post Anesthesia Evaluation Patient Participated: Yes Airway Patent: Yes Stable Respiratory Function: Yes Nausea/Vomiting: No Temp > 96.8F: Yes Pain Manageable: Yes Adequeate Hydration: Yes Anesthesia Complications: No Block Receding Appropriately: Yes Patient on Ventilator: Yes
[2018-02-10 05:56] LABS: Hematocrit 29.9 % (30.3-42.9); Hemoglobin 9.8 gm/dl (10.1-14.3)
--- NOTE | 2018-02-10 10:37 | Progress Note ---
Assessment and Plan - Patient Problems (1) S/P repeat low transverse Current Visit: Yes Status: Acute Plan to address problem: POD 1 - stable Continue routine postop orders Ambulation encouraged, as tolerated Abdominal binder ordered, prn Anticipate discharge in 24 to 48 hours (2) Status post tubal ligation at time of delivery, current hospitalization Current Visit: Yes Status: Acute (3) Anemia in puerperium, baby delivered during current episode of care Current Visit: Yes Status: Acute Plan to address problem: Asymptomatic Iron therapy initiated Subjective - Subjective Date of service: 02/10/18 Principal diagnosis: POD #1; s/p Repeat LTCS w/BTL Patient reports: appetite normal, voiding normally, pain well controlled, flatus, ambulating normally, no dizzy ambulation, no bowel movement : doing well, other (breast and bottle feeding) Objective - Vital Signs Latest vital signs: Vital Signs Temp Pulse Resp BP BP Pulse Ox 02/10/18 08:16 98.6 F 89 18 94/45 02/10/18 07:05 98.6 F 57 L 18 90/56 97 02/10/18 05:30 98.5 F 86 18 110/67 02/10/18 04:54 99.0 F 87 123/82 02/10/18 01:28 97.7 F 85 18 116/72 02/09/18 20:15 97.8 F 80 18 127/93 100 02/09/18 18:45 97.5 F L 75 18 100 02/09/18 18:10 85 16 148/64 100 02/09/18 17:55 97.6 F 85 14 150/66 100 02/09/18 17:40 76 18 135/64 100 02/09/18 17:35 78 16 132/64 100 02/09/18 17:30 80 14 128/52 100 02/09/18 17:25 97.2 F L 82 12 118/47 100 02/09/18 14:05 74 152/90 Intake and Output 02/09/18 02/10/18 02/10/18 23:59 07:59 15:59 Intake Total 100 500 480 Output Total 200 1400 Balance -100 -900 480 Intake: IV 100 Oral 480 Intake, Free Water 500 Output: Urine 200 1400 Indwelling Catheter 1400 Other: Total, Intake Amount 480 Total, Output Amount 800 - Exam Abdomen: Present: normal appearance, soft Vulva: both: normal Uterus: Present: normal, firm, fundal height at umbilicus Extremities: Present: normal Incision: Present: normal, dry, dressed - Labs Labs: Abnormal lab results 02/09/18 02/10/18 Range/Units 15:06 05:06 RBC 3.49 L (3.65-5.03) M/mm3 Hgb 9.8 L (10.1-14.3) gm/dl Hct 29.9 L (30.3-42.9) % Bowman % (Auto) 7.6 H (0.0-7.3) % Seg Neutrophils % 76.6 H (40.0-70.0) % Seg Neutrophils # 8.4 H (1.8-7.7) K/mm3
[2018-02-10] MEDS: FEOSOL PO SCH ×2 (10:42→22:11)
[2018-02-10] MEDS ORDERED: BENADRYL PO PRN (14:42)
[2018-02-10] MEDS: IBUPROFEN PO PRN (22:11)
[2018-02-10] MEDS: PERCOCET 5/325 PO PRN (22:12)
[2018-02-11] MEDS: IBUPROFEN PO PRN (07:22)
[2018-02-11] MEDS: PERCOCET 5/325 PO PRN ×2 (10:00→16:30)
[2018-02-11] MEDS: FEOSOL PO SCH (10:00)
[2018-02-11 15:53] VITALS: BP 117/77
--- NOTE | 2018-02-11 16:49 | Progress Note ---
Assessment and Plan A: /postop day 2 S/P repeat LTCS with BTL. Anemia. P: Anticipate discharge tomorrow. Continue iron supplementation. Subjective - Subjective Date of service: 02/11/18 Principal diagnosis: POD #2; s/p Repeat LTCS w/BTL Interval history: /postop day 2 S/P repeat LTCS with BTL. Doing well. Bottlefeeding. Patient is voiding without difficulty. Passing gas and tolerating a regular diet without nausea or vomiting. Patient denies headache, cough, shortness of breath, dizziness, leg pain, chest pain, or symptoms of depression. Patient reports: appetite normal, voiding normally, pain well controlled, ambulating normally, nauseated, no dizzy ambulation Ringoes: doing well Objective - Vital Signs Latest vital signs: Vital Signs Temp Pulse Resp BP BP Pulse Ox 02/11/18 15:18 98.4 F 80 18 117/77 98 02/11/18 07:20 97.4 F L 18 117/79 02/11/18 00:47 98.8 F 86 18 111/64 97 02/10/18 17:38 99.8 F H 90 18 126/82 - Exam Cardiovascular: Present: Regular rate, Normal S1, Normal S2 Lungs: Present: Clear to auscultation Abdomen: Present: normal appearance, soft. Absent: distention, tenderness, guarding, rigidity Uterus: Present: normal, firm, fundal height below umbilicus. Absent: bogginess, tenderness Extremities: Present: normal, edema (mild bilateral pedal edema). Absent: tenderness Incision: Present: normal, dry, intact
== END 2018-02-11 17:45 | disposition home or self-care (01) | DRG 765 ==
LOC: TRG 13:17 → APU 15:22 → OB 18:16
PROVIDERS: ADMIT Obstetrics & Gynecology; ATTEND Obstetrics & Gynecology
PROC: 10D00Z1 Extraction of Products of Conception, Low, Open Approach (ICD-10-PCS; principal; 2018-02-09)
PROC: 0UB70ZZ Excision of Bilateral Fallopian Tubes, Open Approach (ICD-10-PCS; 2018-02-09)
DX: O34.211 Maternal care for low transverse scar from previous cesarean delivery (principal); D62 Acute posthemorrhagic anemia; Z3A.36 36 weeks gestation of pregnancy; Z37.0 Single live birth; O90.81 Anemia of the puerperium
CPT/HCPCS: 36415; 59025; 81001; 85014; 85018; 85025; 86592; 86850; 86900; 86901; 88302; G0378; J0690; J2210; J2274; J2405; J2590; J2765; J3010; J3105; J7030; J7120; Q0177